=== PATIENT | female | born 1955 | race Caucasian/White ===

== ENCOUNTER → 2016-09-27 | Outpatient (CLI) | payer OTHER | END | disposition disaster alternative care site (69) | LOC: GBCOE 13:30 | DX: Z12.31 Encounter for screening mammogram for malignant neoplasm of breast (principal) | CPT/HCPCS: G0202 ==

== ENCOUNTER → 2016-11-08 | Outpatient (CLI) | payer OTHER ==
--- NOTE | ~2016-11-08 | PUL ---
PATIENT'S NAME: BOSTON RAMIREZ [facility] AGE: 61 Y [address] ROOM: [place] [address] LOCATION: [facility], [place] ADMIT DATE: 11/08/2016 Pulmonary DISCHARGE DATE: FAMILY PHYSICIAN: Ivy George MD ATTENDING PHYSICIAN: Ivy George NAME OF PROCEDURE: Sleep study PROCEDURE DATE: 11/08/16 TECH: RANDI Diego TEST #: [facility]# [id number] TECHNICAL PARAMETERS: The patient was studied using International 10/20 measuring system. While the patient was studied, there was continuous monitoring of EEG (8 leads), EOG (2 leads), EKG (3 leads), submental EMG (3 leads), tibial (4 leads), respiratory inductive plethysmography (RIP) for thoracic and abdominal effort, oral and nasal airflow with a thermocouple and pressure transducer, and oximetry. The printer repair technician also performed visual and auditory observations noting things like body position, patient's status, breath sounds, artifact, snoring level and patient comments. Continuous sound was monitored using a 2-way speaker system and video monitoring was performed using an infrared camera. Review of the entire study was performed epoch by epoch utilizing a single epoch and multiple epoch capability sleep system. MEDICAL HISTORY: Patient is a 61-year-old woman with daytime sleepiness and snoring. SLEEP STAGE SUMMARY: The patient was studied for 412 minutes of which she slept 361 minutes. She fell asleep in 10 minutes and slept for 88% of the night. Sleep architecture revealed a decline in slow wave sleep. RESPIRATORY SUMMARY: Oxygen saturations ranged from 87-94%. There were no apneas and 18 hypopneas for an apnea/hypopnea index normal at 3 events per hour. EKG SUMMARY: No dysrhythmias were noted. LIMB MOVEMENT SUMMARY: Periodic limb movements were noted. Clinical significance is unclear. Limb movement index was 62 events per hour with a limb movement arousal index of 5.3 events per hour. SUMMARY: No evidence of significant obstructive sleep apnea. Patient may have periodic limb movement disorder. Clinical correlation is suggested. PATIENT'S NAME: BOSTON RAMIREZ [facility] AGE: 61 Y [address] ROOM: [place] [address] LOCATION: [facility], [place] ADMIT DATE: 11/08/2016 Pulmonary DISCHARGE DATE: FAMILY PHYSICIAN: Ivy George MD ATTENDING PHYSICIAN: Ivy George PLAN: The patient will receive results from the ordering provider. PRATEEK SPIVEY MD [facility]/ /[id number] dtt: 11/20/16 0742 , Prateek Spivey. dtd: 11/10/16 1314
== END | disposition disaster alternative care site (69) ==
LOC: GSLP 20:29
DX: E66.9 Obesity, unspecified (principal); R06.83 Snoring; R53.83 Other fatigue